=== PATIENT | female | born 1975 | race Caucasian/White ===

== ENCOUNTER 2020-08-28 06:48 | Outpatient (NON) | payer OTHER, SELFPAY ==
[2020-08-29 13:52] LABS: SARS-CoV-2 RNA PCR Negative
== END 2020-08-28 06:49 ==
PROVIDERS: PCP Family Medicine; Visit Provider Family Medicine
DX: Z20.828 Contact with and (suspected) exposure to other viral communicable diseases (principal); J02.9 Acute pharyngitis, unspecified; R05 Cough; H92.10 Otorrhea, unspecified ear; R09.81 Nasal congestion
CPT/HCPCS: 87635; C9803; U0003

== ENCOUNTER → 2021-01-01 11:16 | Outpatient (CLI) | payer OTHER, SELFPAY ==
--- NOTE | ~2021-01-01 | MM_ITS ---
EXAMINATION: MM screening pablito BI w negro HISTORY: Screening TECHNIQUE: Craniocaudal and mediolateral oblique 3-D tomosynthesis images were obtained and synthetic 2-D images were generated. CAD analysis was submitted and interpreted. COMPARISON: No prior mammogram is available for comparison at this institution. BREAST PARENCHYMAL COMPOSITION: There are scattered areas of fibroglandular density. FINDINGS: There is no evidence of suspicious mass, calcification, or architectural distortion to sugg est malignancy in either breast. There has been no suspicious interval change. IMPRESSION: 1. No mammographic evidence of malignancy. 2. Recommend routine screening mammography in one year. BI-RADS Category 1: Negative Reviewed, dictated and finalized at location A. K LOADER
== END ==
PROVIDERS: PCP Family Medicine; Visit Provider Obstetrics & Gynecology
DX: Z12.31 Encounter for screening mammogram for malignant neoplasm of breast (principal)
CPT/HCPCS: 77063; 77067

== ENCOUNTER → 2022-04-10 11:15 | Outpatient (CLI) | payer OTHER, SELFPAY ==
--- NOTE | ~2022-04-10 | MM_ITS ---
EXAMINATION: MM screening pablito BI w negro HISTORY: Screening mammogram TECHNIQUE: Craniocaudal and mediolateral oblique 3-D tomosynthesis images were obtained and synthetic 2-D images were generated. CAD analysis was submitted and interpreted. COMPARISON: January 01, 2021 bilateral screening mammogram BREAST PARENCHYMAL COMPOSITION: There are scattered areas of fibroglandular density. FINDINGS: There is no evidence of suspicious mass, calcification, or architectural distortion to sugg est malignancy in either breast. There has been no suspicious interval change. IMPRESSION: 1. No mammographic evidence of malignancy. 2. Recommend routine screening mammography in one year. BI-RADS Category 1: Negative Reviewed, dictated and finalized at location A.
== END ==
PROVIDERS: PCP Obstetrics & Gynecology; Visit Provider Obstetrics & Gynecology
DX: Z12.31 Encounter for screening mammogram for malignant neoplasm of breast (principal)
CPT/HCPCS: 77063; 77067

== ENCOUNTER 2023-12-09 08:57 | Outpatient (CLI) | payer OTHER, SELFPAY ==
--- NOTE | 2023-12-09 09:09 | ECG_ITS ---
Measurements Intervals [place] Rate: 80 P: 34 IN: 188 QRS: 5 QRSD: 76 T: 26 QT: 356 QTc: 413 Interpretive Statements SINUS RHYTHM LOW QRS VOLTAGE IN PRECORDIAL LEADS CANNOT RULE OUT SEPTAL INFARCT, AGE INDETERMINATE BASELINE ARTIFACT- I, II, III, AVR, AVL, AVF, V4-V6 ABNORMAL ECG COMPARED TO ECG 02/22/2019 13:30:59 NO SIGNIFICANT CHANGES Electronically Signed On 12-09-2023 9:41:29 COLORIST FORMULATOR by Freddy Delgadillo D.O.
[2023-12-09 09:46] LABS: Basophils Absolute Auto 0.1 K/mm3 (0.0-0.1); Basophils Percent Auto 0.7 % (0.2-1.2); Eosinophils Absolute Auto 0.2 K/mm3 (0-0.3); Hematocrit 45.1 % (37.0-47.0); Hemoglobin 14.7 g/dL (12.0-15.0); Immature Granulocyte Absolute 0.02 K/mm3 (0.00-0.031); Immature Granulocyte Percent A 0.2 % (0-0.5); Lymphocytes Absolute Auto 2.43 K/mm3 (0.9-3.2); Lymphocytes Percent Auto 23.1 % (18.3-44.2); Mean Corpuscular HGB Conc 32.6 g/dl (32-36); Mean Corpuscular Hemoglobin 30.9 pg (26-34); Mean Corpuscular Volume 94.9 fl (80-100); Monocytes Absolute Auto 0.7 K/mm3 (0.1-0.6); Monocytes Percent Auto 6.5 % (2.6-8.5); Neutrophils Absolute Auto 7.1 K/mm3 (1.3-6.7); Neutrophils Percent Auto 67.5 % (45.5-73.1); Platelet Count Result 331 k/mm3 (150-375); Red Blood Count 4.75 M/mm3 (4.2-5.4); Red Cell Distribution Width 11.9 % (11.5-14.5); White Blood Count 10.5 K/mm3 (4.5-10.0)
== END 2023-12-09 08:58 | disposition home or self-care (01) ==
LOC: ANHSURGERY 09:04
PROVIDERS: PCP Family Medicine; Visit Provider Obstetrics & Gynecology
DX: Z01.818 Encounter for other preprocedural examination (principal); N81.6 Rectocele; R94.31 Abnormal electrocardiogram [ECG] [EKG]; Z87.891 Personal history of nicotine dependence
CPT/HCPCS: 36415; 85025; 86850; 86900; 86901; 93005

== ENCOUNTER 2023-12-10 01:08 | Day surgery (SDC) | payer OTHER, SELFPAY ==
[2023-12-02 10:26] VITALS: BMI 32.5
--- NOTE | 2023-12-02 10:41 | PC.NURSE ---
Report to the Outpatient Waiting Room, entrance under the green pavilion located off [facility], at time 9:30 on date 12/10/23. Planned Procedure Time: 11:30. Time changes happen often and if your time is changed the preop area will call you the afternoon before. - You and your visitor will be asked to self-screen and do not enter if you have any COVID symptoms. - A mask is optional within the hospital at this time. Patients may have clear liquids (water, carbonated beverages, clear teas, apple juice) until 3 hours prior to surgery (8:30) with a maximum of 20 ounces. - No food from midnight until time of surgery Take the following medications with a SIP of water the morning of surgery: ANTIBIOTIC (IF STILL TAKING) DO NOT STOP ANY OF YOUR OTHER PRESCRIPTION MEDICATIONS PRIOR TO SURGERY ?EXCEPT THE FOLLOWING Medications to discontinue per physician: VITAMINS Date to take last dose: 12/06/23 Please no make-up, nail citizen of [place], hairspray, perfume, deodorant, or body powder the day of surgery. No jewelry (including any body piercings) or valuables the day of surgery, leave them at home. Please take a shower or bath the night before, or the morning of, surgery with an antibacterial soap. Wear comfortable, loose fitting clothing. - Jewelry must be removed prior to entering the operating room. Rings and piercings that are not removed may be cut off. - The hospital will not accept responsibility for valuables. - Please leave all valuables, including medications, at home the day of surgery. If you are going home after surgery, a licensed van cdl driver must drive you home. - NO public transportation without another adult if you receive anesthesia. - We recommend that an adult stay with you for 24 hours following discharge. - We also recommend that you do not drive, make important decision, drink alcoholic beverages, or take any drugs that were not prescribed by your health care provider for at least 24 hours after your discharge time. Follow any additional instructions given to you from your surgeon. If you or anyone in your household have experienced Covid symptoms in the past week, please notify your surgeon or the nurse liaison at the phone number below for possible testing. Telephone instructions given to PT - NAZ ESPINOZA and asked if any additional questions and then verbalized understanding. Patient advised to call surgeon office or pre surgery nurse liaison [phone] if any additional questions.
--- NOTE | 2023-12-07 13:08 | PM.IMHP ---
H&P: HPI History of Present Illness Date/Time: 12/07/23 13:08 Chief Complaint: Stress urinary incontinence and symptomatic rectocele Narrative: This is a 48-year-old female status post hysterectomy bilateral salpingectomy was admitted for tension-free vaginal tape sling/cystoscopy/repair rectocele. She finds a socially in the ring and then stress incontinence as well as bulging from the rectocele. Risks and benefits of these procedures were reviewed in great detail. She had all questions answered. She asked to proceed PMFSH Past Medical History Medical History Acute pain of left shoulder BMI 33.0-33.9,adult BMI greater than 30 Chest discomfort Chronic EBV infection Dietary counseling and surveillance (03/30/18) Endometriosis Left lower quadrant pain Low sodium levels Low vitamin B12 level Low vitamin D level Neck pain Pleural effusion Right kidney mass Screening for hyperlipidemia Tobacco abuse Uterine cyst Weight gain Surgical History Surgical History H/O: hysterectomy Family History Family History Father Family history of coronary artery disease Hypertension COPD (chronic obstructive pulmonary disease) Heart disease Tobacco abuse Mother Hyperlipidemia Tobacco abuse Sibling Hyperlipidemia Social History Social History Smoking packs per day: 0.75 Smoking cigarettes per day: 15.0 Years smoked: 30 Smoking pack-years: 22.50 Smoking status: Current every day smoker Tobacco type: cigarettes Second hand tobacco smoke exposure: No Alcohol intake: current Drinks per week: 6 Substance use: current Substance use type: marijuana and crack/cocaine Other substance usage details: COCAINE USED END OF OCT 2023 Living arrangements: with family Occupation/Education: occupation 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 Gender identity (if verbalized by the patient): Female Spiritual care concerns: No Meds Home Medications and Allergies Home Medications Medication Instructions Recorded Confirmed Type azithromycin 250 mg tablet 250 mg PO DAILY 12/02/23 12/02/23 History multivitamin 1 tablet PO DAILY 12/02/23 12/02/23 History Allergies Allergy/AdvReac Type Severity Reaction Status Date / Time Penicillins Allergy Unknown Unknown Verified 12/02/23 10:22 Exam Const: General: cooperative, healthy appearing and comfortable Orientation/consciousness: oriented to person, oriented to place and oriented to time Resp: Effort & Inspection: normal respiratory effort Cardio: Rate: regular rate Rhythm: regular rhythm Heart sounds: S1 normal heart sound present and S2 normal heart sound present GI: Inspection: normal to inspection : Speculum Exam - Vagina: normal appearance of the vagina and tenderness (Rectocele is noted) Speculum Exam - Cervix: Cervix absent Bimanual exam- vagina & uterus: uterus absent Bimanual Exam- Adnexa, other: normal adnexae Assessment and Plan Assessment and plan (1) Overflow stress urinary incontinence in female: Code(s): N39.3 - Stress incontinence (female) (male); N39.490 - Overflow incontinence Status: Acute (2) Rectocele: Code(s): N81.6 - Rectocele Status: Acute Plan Tension-free vaginal tape/cystoscopy/posterior repair
[2023-12-10] VITALS (9 sets, daily range): BP systolic 107–122; BP diastolic 62–90; PULSE 54–93; RESP 14–20; TEMP 36.3–36.7; O2SAT 95–100
--- NOTE | 2023-12-10 06:38 | WPDHPUPDATE1 ---
History and Physical Update Update Date/Time: 12/10/23 06:38 History and Physical has been reviewed, including an updated exam of the patient. There are NO changes in the patient's condition. Risks, benefits, and alternatives have been discussed and questions answered. Patient agrees to proceed with procedure.
[2023-12-10] MEDS: LACTATED RINGERS 1,000 ML 30 ML IV CONT ×2 (10:04→13:51)
[2023-12-10] MEDS: ACETAMINOPHEN 500 MG TABLET 1000 MG PO (10:12)
[2023-12-10] MEDS: SCOPOLAMINE 1 MG PATCH 1 PATCH TRANSDERM (10:12)
[2023-12-10] MEDS: KETOROLAC 15 MG/ML VIAL (*BKC) IV PUSH (10:13)
--- NOTE | 2023-12-10 10:46 | WPDANESEPPF ---
Anes - Initial Pre Proc Eval Procedure: Operation Date: 12/10/23 11:30 Proposed Procedures p Tension Free Vaginal Taping - Feliz Manzo MD s Posterior Repair - Feliz Manzo MD Date/Time: 12/10/23 10:46 Surgeon: Feliz Manzo MD Pre Op Diagnosis: ROMINA, Rectocele Patient Data Age: 48 Gender: F Height: 1.73 m Weight: 97 kg Last Vital Signs Temp 36.3 C L 12/10/23 10:01 Pulse 76 12/10/23 10:01 Resp 20 12/10/23 10:01 BP 121/89 12/10/23 10:01 Pulse Ox 100 12/10/23 10:01 O2 Del Method Room Air 12/10/23 10:01 Allergies Allergy/AdvReac Type Severity Reaction Status Date / Time Penicillins Allergy Unknown Rash Verified 12/10/23 09:39 Home Medications Medication Instructions Recorded Confirmed Type multivitamin 1 tablet PO DAILY 12/02/23 12/10/23 History hydrocodone 5 mg-acetaminophen 325 1 tablet PO Q4H PRN pain #20 tabs 12/10/23 Rx mg tablet Patient hx anesthesia problems: none Family hx anesthesia problems: none Results Review: All pre-operative results and documents have been reviewed as part of the pre-operative evaluation. [facility] Past Medical History Medical History Acute pain of left shoulder BMI 33.0-33.9,adult BMI greater than 30 Chest discomfort Chronic EBV infection Dietary counseling and surveillance (03/30/18) Endometriosis Left lower quadrant pain Low sodium levels Low vitamin B12 level Low vitamin D level Neck pain Pleural effusion Right kidney mass Screening for hyperlipidemia Tobacco abuse Uterine cyst Weight gain Surgical History Surgical History H/O: hysterectomy Family History Family History Father Family history of coronary artery disease Hypertension COPD (chronic obstructive pulmonary disease) Heart disease Tobacco abuse Mother Hyperlipidemia Tobacco abuse Sibling Hyperlipidemia Social History Social History Smoking packs per day: 0.75 Smoking cigarettes per day: 15.0 Years smoked: 30 Smoking pack-years: 22.50 Smoking status: Current every day smoker Tobacco type: cigarettes Second hand tobacco smoke exposure: No Alcohol intake: current Drinks per week: 6 Substance use: current Substance use type: marijuana and crack/cocaine Other substance usage details: COCAINE USED END OF OCT 2023 Living arrangements: with family Occupation/Education: occupation 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 Informed Consent: The patient's anesthetic plan and its attendant risks and benefits were discussed with the patient/family/POA. Questions were solicited and answers provided to the satisfaction of the patient/family/POA.
[2023-12-10] MEDS: ceFAZolin 2 GM/D5W 50 ML 2 GM/50 ML BAG IVPB (11:12)
--- NOTE | 2023-12-10 12:21 | W.PM.PROC2 ---
Procedure Note - Detailed Date of Procedure 12/10/23 Pre-op Diagnosis ROMINA, Rectocele Post-op Diagnosis Same Procedure Performed Cystoscopy/ tension-free vaginal tape/posterior Surgeon Feliz Manzo MD Anesthesia General Indications / 48 rectocele stress urine it is status post hysterectomy Findings very large rectocele. Uterus and cervix absent. Hyper reactive urethra Description of Procedure patient was prepped draped normal sterile fashion placed in dorsal lithotomy position. Under excellent general trach anesthesia weighted speculum placed in posterior fornix vagina. The 18 [place] catheter was placed in the bladder and bladder drained of clear urine. A mid suburethral incision was made the lateral large spaces opened the bilaterally by dissection. The catheter guide was placed debris the urethra was retracted laterally to the opposite side and the right retropubic bladder space entered 45 degree angle up to 35 by the pubic bone through the fashion skin this was repeated on the contralateral side reflecting the urethra to the opposite side. 70degree cystoscope was inserted no injury seen these were then brought up to the tightness of an open pee on clamped. Plastic was removed. The mesh was trimmed at the suprapubic area and the vaginal incision closed with 3-0 Monocryl. Attention was then turned to the posterior para large rectocele was seen. Linear incision was made at the opening of the vagina in serially dissecting the mucosa up to the top of the vaginal cuff was undertaken. The underlying rectocele was bluntly and sharply dissected away until it could be completely obliterated. The excess tissue was removed and the muscles brought medially. This was then closed with running 0 Vicryl superior portion to the perineum. Blood loss was estimated 100cc. Packing was placed with Premarin cream to protect the incision side. The instruments withdrawn the patient was awakened went to recovery in satisfactory sponge, needle, instrument counts were correct Estimated Blood Loss 100 Drains No Packing Yes Pathology None sent Complications No immediate complications Condition Stable Disposition PACU
[2023-12-10] MEDS: fentaNYL CITRATE INJ (*CRX) 100 MCG/2 ML VIAL 25 MCG IV PUSH ×4 (12:36→12:48)
[2023-12-10] MEDS: ONDANSETRON INJ 4 MG/2 ML VIAL IV PUSH (12:37)
[2023-12-10] MEDS: oxyCODONE HCL (*CRX) 5 MG TAB IR PO (14:38)
== END 2023-12-10 14:49 | disposition home or self-care (01) ==
PROVIDERS: PCP Family Medicine; Visit Provider Obstetrics & Gynecology
PROC: 0TSD0ZZ Reposition Urethra, Open Approach (ICD-10-PCS; CPT 57288; principal; 2023-12-10 11:30)
PROC: (CPT 57260; 2023-12-10 11:30)
DX: N39.3 Stress incontinence (female) (male) (principal); N39.490 Overflow incontinence; N81.6 Rectocele; F17.210 Nicotine dependence, cigarettes, uncomplicated; F12.90 Cannabis use, unspecified, uncomplicated; F14.90 Cocaine use, unspecified, uncomplicated; E66.9 Obesity, unspecified; Z68.32 Body mass index [BMI] 32.0-32.9, adult
CPT/HCPCS: 57288; 57250; 36415; 85025; 86850; 86900; 86901; 93005; A9270; C1771; J0690; J1100; J1885; J2250; J2405; J2704; J3010; J7120